=== PATIENT | female | born 1995 | race American Indian/Alaskan Native ===

== ENCOUNTER 2019-11-24 12:41 | Inpatient (IN) | payer BC, OTHER ==
[2019-11-24] MEDS ORDERED: LIDOCAINE (2%) 20 MG/1 ML VIAL 20 ML MDV INFILTRATI ONE ×3 (12:49→13:17)
[2019-11-24] MEDS ORDERED: LANOLIN/ZINC/DIMETHICONE (LANSINOH) 7 GM TP PRN (13:16)
[2019-11-24] MEDS ORDERED: PROMETHAZINE 25 MG TAB PO PRN (13:16)
[2019-11-24] MEDS ORDERED: ACETAMINOPHEN 325 MG TAB PO PRN (13:16)
[2019-11-24] MEDS ORDERED: diphenhydrAMINE 25 MG CAP PO PRN (13:16)
[2019-11-24] MEDS ORDERED: PROMETHAZINE 25 MG RECT SUPP PR PRN (13:16)
[2019-11-24] MEDS ORDERED: ONDANSETRON 4 MG/2 ML INJ IV PRN (13:16)
[2019-11-24] MEDS ORDERED: KETOROLAC 30 MG/1 ML INJ IV PRN (13:16)
[2019-11-24] MEDS ORDERED: MAGNESIUM HYDROXIDE (MOM) ORAL LIQD UDC PO PRN (13:16)
[2019-11-24] MEDS ORDERED: WITCH HAZEL/ GLYCERIN PAD TP PRN (13:16)
[2019-11-24] MEDS ORDERED: HYDROcodone/ACETAMINOPHEN 5-325 MG TAB PO PRN (13:16)
[2019-11-24] MEDS ORDERED: oxyCODONE /ACETAMINOPHEN 5-325MG TAB PO PRN (13:16)
[2019-11-24] MEDS ORDERED: MINERAL OIL 30 ML ORAL LIQD PO PRN (13:17)
[2019-11-24] MEDS ORDERED: TERBUTALINE 1 MG/1 ML INJ SUB-Q PRN (13:17)
[2019-11-24] MEDS ORDERED: ePHEDrine SULFATE 50 MG/1 ML INJ IV PRN (13:17)
[2019-11-24] MEDS ORDERED: TERBUTALINE 1 MG/1 ML INJ IVP PRN (13:17)
--- NOTE | 2019-11-24 13:30 | History and Physical Report ---
History of Present Illness Date of examination: 11/24/19 Date of admission: 11/24/19 12:41 Chief complaint: home delivery History of present illness: This is a 24 yo unknown LMP. Patient states that she did not know that she was . She has no medical care. She reports migraines and anemia as medical hx. She delivered at home after having cramping all night. She delivered in the toilet Past History Past Medical History: neurologic (migraines), hematologic disorders (anemia) Past Surgical History: no surgical history Family/Genetic History: none Social history: no significant social history, single. denies: smoking, alcohol abuse, prescription drug abuse - Obstetrical History : 1 Para: 0 Hx # Term Pregnancies: 0 Number of Pregnancies: 0 Spontaneous Abortions: 0 Induced : 0 Number of Living Children: 0 Medications and Allergies Allergies Allergy/AdvReac Type Severity Reaction Status Date / Time No Known Allergies Allergy Unverified 11/24/19 12:48 Home Medications Medication Instructions Recorded Confirmed Last Taken Type No Known Home Medications [No 11/24/19 11/24/19 Unknown History Reported Home Medications] Active Meds: Active Medications Acetaminophen (Tylenol) 650 mg PO Q4H PRN PRN Reason: Pain MILD(1-3)/Fever >100.5/HIG[place]ERA Acetaminophen/Hydrocodone Bitart ([place] 5/325) 2 each PO Q6H PRN PRN Reason: Pain, Moderate (4-6) Bisacodyl (Dulcolax) 10 mg WA BID PRN PRN Reason: Constipation Diphenhydramine HCl (Benadryl) 25 mg PO Q6H PRN PRN Reason: Itching Diphtheria/Tetanus/Acell Pertussis (Boostrix) 0.5 ml IM .ONCE ONE Stop: 11/25/19 13:17 Ephedrine Sulfate (Ephedrine Sulfate) 10 mg IV Q2M PRN PRN Reason: Hypotension Oxytocin/Sodium Chloride (Pitocin/Ns 20 Unit/1000ml Drip) 20 units in 1,000 mls @ 250 mls/hr IV DIRECT MANDA Oxytocin/Sodium Chloride (Pitocin/Ns 20 Unit/1000ml Drip) 20 units in 1,000 mls @ 125 mls/hr IV DIRECT MANDA Oxytocin/Sodium Chloride (Pitocin/Ns 30 Unit/500ml) 30 units in 500 mls @ 1 mls/hr IV TITR MANDA; Protocol Lactated Ringer's (Lactated Ringers) 1,000 mls @ 125 mls/hr IV DIRECT MANDA Ibuprofen (Ibuprofen) 600 mg PO Q6H MANDA Ketorolac Tromethamine (Toradol) 30 mg IV Q6H PRN PRN Reason: Pain, Moderate (4-6) Stop: 11/29/19 13:15 Lidocaine (Xylocaine 2%) 20 ml INFILTRATI ONCE ONE Stop: 11/24/19 13:18 Magnesium Hydroxide (Milk Of Magnesia) 30 ml PO HS PRN PRN Reason: Constipation Measles/Mumps/Rubella Vaccine Live (M-M-R Ii Vaccine) 0.5 ml SUB-Q .ONCE ONE Stop: 11/25/19 13:17 Mineral Oil (Mineral Oil) 30 ml PO QHS PRN PRN Reason: Constipation Multi-Ingredient Ointment (Lansinoh) 1 applic TP PRN PRN PRN Reason: Sore Nipples Multivitamins/Iron/Calcium ( Vitamin) 1 each PO QDAY [facility] Ondansetron HCl (Zofran) 4 mg IV Q8H PRN PRN Reason: Nausea And Vomiting Oxycodone/Acetaminophen (Percocet 5/325) 1 tab PO Q6H PRN PRN Reason: Pain, Moderate (4-6) Promethazine HCl (Phenergan) 25 mg WA Q6H PRN PRN Reason: Nausea And Vomiting Promethazine HCl (Phenergan) 25 mg PO Q6H PRN PRN Reason: Nausea And Vomiting Sodium Chloride (Sodium Chloride Flush Syringe 10 Ml) 10 ml IV PRN NR Terbutaline Sulfate (Brethine) 0.25 mg SUB-Q ONCE PRN PRN Reason: Hyperstimulation/Hypertonicity Terbutaline Sulfate (Brethine) 0.25 mg IVP ONCE PRN PRN Reason: Hyperstimulation/Hypertonicity Witch Eliza/Glycerin (Tucks Pad) 1 each TP PRN PRN PRN Reason: Hemorrhoid/cleansing/soothing Review of Systems All systems: negative - Vital Signs Vital signs: Vital Signs Pulse Pulse Ox 113 H 100 11/24/19 12:45 11/24/19 12:45 Temp Pulse Resp BP Pulse Ox 97.9 F 120 H 20 110/60 100 11/24/19 13:02 02/01/20 13:17 11/24/19 13:02 11/24/19 13:17 11/24/19 13:10 - Physical Exam Breasts: Positive: normal Cardiovascular: Regular rate, Normal S1 Lungs: Positive: Clear to auscultation, Normal air movement Abdomen: Positive: normal appearance, soft, normal bowel sounds. Negative: distention, tenderness, guarding Genitourinary (Female): Positive: normal external genitalia, normal perenium Vagina: Positive: normal moisture, other (1st degree laceration and b/l labia tears) Uterus: Positive: normal size, normal contour Results All other labs normal. Assessment and Plan A/P PPD 0 home vaginal delivery chronic anemia Dehydration Placenta delivered intact at home- sent for evaluation All labs sent- No care- UDS IVF started
[2019-11-24] MEDS ORDERED: OXYTOCIN 10 UNIT/1 ML INJ IM ONE ×2 (13:31→16:00)
--- NOTE | 2019-11-24 13:39 | Procedure Note ---
OB Delivery Note - Delivery Date of Delivery: 11/24/19 Surgeon: LOLITA DAVIS - Vaginal Delivery presentation: vertex Intrapartum events: other(please specify) (Delivered at home with placenta ) Delivery induction: none Route of delivery: Delivery placenta: spontaneous Delivery cord: 3 umbilical vessels Delivery laceration: 1st degree, other (B/L labia ) Anesthesia: local Delivery comments: Patient delivered at home with placenta as well this am at home. I was called to assess patient. Patient lying in bed without complaints. Survey of baby and placenta noted while Peds attending to baby. A first degree noted with repair with 2-0 vicryl and B/L labia laceration repaired with 3-0 on SH. Lidocaine used for anesthesia. Patient tolerated procedure well. Awaiting all nob labs. - Infant A at 1 minute: 8 at 5 minutes: 9 Gender: Female (2456g)
[2019-11-24] MEDS ORDERED: LACTATED RINGERS 1,000 ML IV SCH (14:00)
[2019-11-24] MEDS ORDERED: OXYTOCIN 20 UNIT/1000ML DRIP 20 UNITS/1,000 ML BAG IV SCH ×2 (14:00)
[2019-11-24] MEDS ORDERED: OXYTOCIN DRIP 30 UNITS/500 ML BAG IV SCH (14:00)
[2019-11-24 14:23] LABS: Hematocrit 20.1 % (30.3-42.9); Hemoglobin 6.1 gm/dl (10.1-14.3); Mean Corpuscular HGB Conc 30 % (30-34); Mean Corpuscular Volume 71 fl (79-97); Platelet Count 356 K/mm3 (140-440); Red Blood Count 2.83 M/mm3 (3.65-5.03); Red Cell Distribution Width 18.8 % (13.2-15.2)
[2019-11-24 14:46] LABS: BUN/Creatinine Ratio 17; Blood Urea Nitrogen 10 mg/dL (7-17); Hemolysis Index 9
[2019-11-24 14:59] LABS: Alanine Aminotransferase < 5 units/L (7-56)
[2019-11-24 15:08] LABS: Total Cells Counted 100
[2019-11-24 15:09] LABS: Band Neutrophils # (Manual) 0.3 K/mm3; Basophils % (Manual) 0 % (0.0-1.8); Eosinophils % (Manual) 0 % (0.0-4.3); Giant Platelets Few; Platelet Estimate Consistent w Auto; Tear Drop Cells Few
[2019-11-24] MEDS ORDERED: SODIUM CHLORIDE 0.9% 500 ML 500 ML IV ONE (16:00)
[2019-11-24 17:23] LABS: Amphetamine Screen,Urine PRESUMPTIVE NEGATIVE; Benzodiazepines Screen,Urine PRESUMPTIVE NEGATIVE; Cannabinoid Screen,Urine PRESUMPTIVE NEGATIVE; Cocaine Screen,Urine PRESUMPTIVE NEGATIVE; Methadone Screen,Urine PRESUMPTIVE NEGATIVE; Opiate Screen,Urine PRESUMPTIVE NEGATIVE
[2019-11-25] MEDS: IBUPROFEN 600 MG TAB PO SCH ×5 (00:28→19:57)
[2019-11-25 01:39] LABS: Hematocrit 27.4 % (30.3-42.9); Hemoglobin 8.7 gm/dl (10.1-14.3)
[2019-11-25] MEDS ORDERED: TETANUS,DIPH,PERTUSS(ACELL) VACCINE 0.5 ML SYRINGE IM ONE (06:00)
[2019-11-25] MEDS ORDERED: MEASLES, MUMPS & RUBELLA 12,500 UNIT/0.5 ML VACCINE SUB-Q ONE (06:00)
[2019-11-25] MEDS: PRENATAL VIT27-FE FUMARATE-FOLIC ACID VIT TAB PO SCH (09:55)
[2019-11-26] MEDS: IBUPROFEN 600 MG TAB PO SCH ×2 (05:25→12:00)
--- NOTE | 2019-11-26 07:49 | Progress Note ---
Assessment and Plan A: PPD#2 s/p at term, Symptomatic anemia s/p 2 units PRBCs P: Routine care. Discharge today with follow up in 4 wks for post Subjective - Subjective Date of service: 11/26/19 Principal diagnosis: s/p at term Interval history: No issues Patient reports: appetite normal, voiding normally, pain well controlled, ambulating normally, no flatus, no bowel movement [place]: doing well Objective - Vital Signs Latest vital signs: Vital Signs Temp Pulse Resp BP BP Pulse Ox 11/26/19 06:24 18 11/26/19 05:25 18 11/26/19 02:09 18 11/26/19 01:09 18 11/26/19 00:02 98.2 F 107 H 20 115/67 99 11/25/19 20:57 18 11/25/19 19:57 18 11/25/19 15:10 97.9 F 84 20 113/77 11/25/19 08:00 97.9 F 93 H 20 113/72 Intake and Output 11/25/19 11/26/19 11/26/19 22:59 06:59 14:59 Intake Total 240 240 Balance 240 240 Intake: Oral 240 240 Other: Total, Intake Amount 240 240 # Voids Void 1 1 - Exam Breasts: Present: deferred Cardiovascular: Present: Regular rate Lungs: Present: Clear to auscultation Abdomen: Present: soft Uterus: Present: fundal height below umbilicus Extremities: Present: edema (trace )
--- NOTE | 2019-11-26 07:54 | Discharge Summary ---
Providers - Providers Date of Admission: 11/24/19 12:41 Date of discharge: 11/26/19 Attending physician: LOLITA ENAMORADO MD Primary care physician: SHEAR[facility]PERATOR Hospitalization Reason for admission: active labor Delivery: Procedure details: Please see delivery note. Episiotomy: none Laceration: other (Bilateral periurethral, first degree perineal ) Incision: normal Other procedures: none complications: none Discharge diagnosis: IUP at term delivered baby: female Hospital course: Pt was admitted after home delivery. She was unaware of . Her course was complicated by symptomatic anemia s/p 2 untis PRBCs with appropriate rise in hemoglobin and hemotacrit. She met discharge criteria on PPD#2. She will follow up in 4 wks in the office in [place]. Condition at discharge: Stable Disposition: - TO HOME OR SELFCARE - Discharge Diagnoses (1) No care in current Status: Acute (2) Obesity Status: Acute Qualifiers: Obesity classification: adult class 2 (BMI 35 - 39.9) Body mass index: BMI 38.0-38.9 (3) Anemia Status: Acute Qualifiers: Anemia type: iron deficiency Iron deficiency anemia type: unspecified iron deficiency Qualified Code(s): D50.9 - Iron deficiency anemia, unspecified (4) Term of female Status: Acute Plan - Discharge Medications Prescriptions: Docusate Sodium [Colace] 100 mg PO BID PRN #60 capsule PRN Reason: Constipation Ferrous Sulfate [Iron 325 MG] 325 mg PO TID #90 tablet Ibuprofen [Motrin] 800 mg PO Q8HR PRN #30 tablet PRN Reason: Pain, Moderate (4-6) - Provider Discharge Summary Activity: routine, no sex for 6 weeks, no heavy lifting 4 weeks, no strenuous exercise Diet: routine Instructions: routine Additional instructions: [] Smoking cessation referral if applicable(refer to patient education folder for contact #) [] Refer to [facility] Booklet Call your doctor immediately for: * Fever > 100.5 * Heavy vaginal bleeding ( >1 pad per hour) * Severe persistent headache * Shortness of breath * Reddened, hot, painful area to leg or breast * Drainage or odor from incision. * Keep incision clean and dry at all times and follow doctor's instructions regarding bathing/showering - Follow up plan Follow up: PRIMARY CARE, [Primary Care Provider] - 7 Days LOLITA ENAMORADO MD [Staff Physician] - 12/24/19 (Please call to schedule your appt )
[2019-11-26] MEDS: PRENATAL VIT27-FE FUMARATE-FOLIC ACID VIT TAB PO SCH (09:57)
[2019-11-26 13:45] VITALS: BP 120/76
== END 2019-11-26 14:45 | disposition home or self-care (01) | DRG 806 ==
LOC: LD 12:41 → OB 18:39
PROVIDERS: ADMIT Obstetrics & Gynecology; ATTEND Obstetrics & Gynecology
PROC: 10E0XZZ Delivery of Products of Conception, External Approach (ICD-10-PCS; principal; 2019-11-24)
PROC: 30230N1 Transfusion of Nonautologous Red Blood Cells into Peripheral Vein, Open Approach (ICD-10-PCS; 2019-11-24)
PROC: 0HQ9XZZ Repair Perineum Skin, External Approach (ICD-10-PCS; 2019-11-24)
PROC: 3E0234Z Introduction of Serum, Toxoid and Vaccine into Muscle, Percutaneous Approach (ICD-10-PCS; 2019-11-25)
PROC: 3E0134Z Introduction of Serum, Toxoid and Vaccine into Subcutaneous Tissue, Percutaneous Approach (ICD-10-PCS; 2019-11-25)
DX: O99.214 Obesity complicating childbirth (principal); O99.354 Diseases of the nervous system complicating childbirth; Z37.0 Single live birth; O99.02 Anemia complicating childbirth; O70.0 First degree perineal laceration during delivery; E66.9 Obesity, unspecified; G43.909 Migraine, unspecified, not intractable, without status migrainosus; E86.0 Dehydration; D50.9 Iron deficiency anemia, unspecified; O99.284 Endocrine, nutritional and metabolic diseases complicating childbirth; Z23 Encounter for immunization
CPT/HCPCS: 36415; 80053; 80307; 82962; 85007; 85014; 85018; 85025; 86592; 86705; 86762; 86850; 86900; 86901; 86920; 87806; 88307; 96360; 96372; G0378; J2590; J7040; J7120; P9016